=== PATIENT | male | born 1990 | race Asian ===

== ENCOUNTER 2021-09-06 13:46 | Outpatient (CLI) | payer MEDICAID | END 2021-09-06 13:47 | disposition other institution (70) | LOC: EMS 13:46 | DX: S49.92XA Unspecified injury of left shoulder and upper arm, initial encounter (principal); S79.912A Unspecified injury of left hip, initial encounter; V47.5XXA Car driver injured in collision with fixed or stationary object in traffic accident, initial encounter; Y92.414 Local residential or business street as the place of occurrence of the external cause; Y93.89 Activity, other specified | CPT/HCPCS: A0425; A0427; A0999 ==

== ENCOUNTER 2022-05-28 08:00 | Outpatient (CLI) | payer MEDICAID ==
--- NOTE | 2022-05-28 19:08 | XRAY Report ---
PROCEDURE: Pelvis 1 View INDICATIONS: L HIP PX TECHNIQUE: Single view the pelvis was obtained COMPARISON: None. FINDINGS: Healed left acetabular fracture with instrumentation in good position. There is erosion of the left f emoral head with remodeling of the acetabulum. Cannulated screws associated with the femoral greater tuberosity as well. 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 Reviewed by: Rohan George MD on 05/28/2022 6:07 PM ITZ Approved by: Rohan George MD on 05/28/2022 6:07 PM ITZ Station ID: [id number]
== END 2022-05-28 23:59 | disposition home or self-care (01) ==
LOC: DI.N 08:00
PROVIDERS: ATTEND Nurse Practitioner
DX: M15.4 Erosive (osteo)arthritis (principal)

== ENCOUNTER 2022-06-15 23:13 | Outpatient (CLI) | payer MEDICAID | END 2022-06-15 23:14 | disposition critical access hospital (66) | LOC: EMS 23:13 | DX: T40.411A Poisoning by fentanyl or fentanyl analogs, accidental (unintentional), initial encounter (principal) | CPT/HCPCS: A0425; A0429; A0999 ==

== ENCOUNTER 2022-06-15 23:30 | Emergency (ER) | payer MEDICAID ==
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
[2022-06-16 01:05] VITALS: BP 116/67
== END 2022-06-16 01:18 | disposition home or self-care (01) ==
LOC: EDUNIT# → ED 23:30
DX: T40.411A Poisoning by fentanyl or fentanyl analogs, accidental (unintentional), initial encounter (principal)
CPT/HCPCS: 99283

== ENCOUNTER 2022-08-19 12:03 | Outpatient (CLI) | payer MEDICAID | END 2022-08-19 23:59 | disposition E | LOC: EMS 12:03 ==